=== PATIENT | male | born 1990 | race Native Hawaiian/Other Pacific Islander ===

== ENCOUNTER 2020-10-06 19:15 | Emergency (ER) | payer OTHER ==
[~2020-10-06] VITALS: Ht 182.9 cm; Wt 63.5 kg
[2020-10-06 21:28] VITALS: BP 115/55; TEMP 98.3
== END 2020-10-06 21:30 | disposition home or self-care (01) ==
LOC: ED 19:15
DX: M25.552 Pain in left hip (principal); M54.6 Pain in thoracic spine; M54.5 Low back pain; W22.8XXA Striking against or struck by other objects, initial encounter; Y92.89 Other specified places as the place of occurrence of the external cause
CPT/HCPCS: 96372; 99283; J1885

== ENCOUNTER 2021-07-15 13:09 | Emergency (ER) | payer OTHER ==
[~2021-07-15] VITALS: Ht 182.9 cm; Wt 72.6 kg
[2021-07-15 14:17] VITALS: BP 117/70; TEMP 98.5
== END 2021-07-15 14:19 | disposition home or self-care (01) ==
LOC: ED 13:09
DX: S29.012A Strain of muscle and tendon of back wall of thorax, initial encounter (principal); X50.9XXA Other and unspecified overexertion or strenuous movements or postures, initial encounter; Y92.511 Restaurant or cafe as the place of occurrence of the external cause
CPT/HCPCS: 96372; 99283; J1885; J2360